=== PATIENT | male | born 1975 | race African-American/Black ===

== ENCOUNTER 2016-05-10 03:10 | Emergency (ER) | payer SELFPAY ==
[2016-05-10] MEDS ORDERED: NORMAL SALINE 1000 ML 1,000 ML IV PRN (03:17)
[2016-05-10] MEDS ORDERED: NORMAL SALINE 250 ML IV PRN (03:17)
[2016-05-10] MEDS ORDERED: CEFAZOLIN 2 GM/D5W RTU 2 GM/50 ML RTUPB IV ONE (03:18)
[2016-05-10 03:24] LABS: ABSOLUTE EOSINOPHILS # (AUTO) 0.3 10^3/uL (0.0-0.6); ABSOLUTE LYMPHOCYTES (AUTO) 2.6 10^3/uL (0.5-4.7); ABSOLUTE NEUT (AUTO) 13.3 10^3/uL (1.7-8.2); BASOPHILS % (AUTO) 0.2 % (0-2); EOSINOPHILS % (AUTO) 1.8 % (0-6); HEMATOCRIT 48.3 % (37.9-51.0); HEMOGLOBIN 15.6 g/dL (13.5-17.0); HGB HCT DIFFERENCE -1.5; MEAN CORPUSCULAR HEMOGLOBIN 31.3 pg (27.0-33.4); MEAN CORPUSCULAR HGB CONC 32.3 g/dL (32.0-36.0); MEAN CORPUSCULAR VOLUME 97 fl (80-97); MONOCYTES % (AUTO) 5.7 % (3-13); RED BLOOD COUNT 4.98 10^6/uL (4.35-5.55); SEGMENTED NEUTROPHILS % (AUTO) 77.3 % (42-78); WHITE BLOOD COUNT 17.2 10^3/uL (4.0-10.5)
[2016-05-10] MEDS ORDERED: DIPH/PERTUSS(ACELL)/TETANUS VAC/PF 0.5 ML SYR (>=10YO) IM ONE (03:26)
[2016-05-10] MEDS ORDERED: FENTANYL CITRATE INJ/PF 100 MCG/2 ML AMPUL IV ONE ×2 (03:28→03:50)
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
[2016-05-10 03:39] LABS: ALANINE AMINOTRANSFERASE 42 U/L (21-72); ALBUMIN 4.5 g/dL (3.5-5.0); ALKALINE PHOSPHATASE 81 U/L (38-126); ANION GAP 19 (5-19); ASPARTATE AMINO TRANSFERASE 31 U/L (17-59); BILIRUBIN,TOTAL 0.8 mg/dL (0.2-1.3); BLOOD UREA NITROGEN 10 mg/dL (7-20); CALCIUM 9.7 mg/dL (8.4-10.2); CARBON DIOXIDE 25 mmol/L (22-30); CHLORIDE 99 mmol/L (98-107); CREATININE RESULT 1.42 mg/dL (0.52-1.25); GLUCOSE 189 mg/dL (75-110); POTASSIUM 4.1 mmol/L (3.6-5.0)
[2016-05-10] MEDS ORDERED: FENTANYL CITRATE INJ/PF 100 MCG/2 ML AMPUL ONE (03:53)
== END 2016-05-10 04:23 | disposition short-term general hospital (02) ==
LOC: ER 03:10 → EDBD 03:10 → ER 04:23
DX: S42.022B Displaced fracture of shaft of left clavicle, initial encounter for open fracture (principal); S71.101A Unspecified open wound, right thigh, initial encounter; X95.9XXA Assault by unspecified firearm discharge, initial encounter; Z23 Encounter for immunization
CPT/HCPCS: 96376; 99291; 90471; 96375; 96365; 86900; 86901; 36415; 36430; 86850; 85025; 80053; 86920; 71010; 73552; 72020; P9016